=== PATIENT | female | born 1995 | race Caucasian/White ===

== ENCOUNTER 2020-02-09 18:24 | Emergency (ER) | payer OTHER ==
[~2020-02-09] VITALS: Ht 162.6 cm; Wt 67.1 kg
[2020-02-09 18:33] VITALS: BP 104/56
[2020-02-09 19:59] LABS: APPEARANCE,URINE CLEAR (CLEAR); BILIRUBIN,URINE NEGATIVE (NEGATIVE); BLOOD, URINE NEGATIVE (NEGATIVE); COLOR,URINE YELLOW (YELLOW); LEUKOCYTE ESTERASE ,URINE TRACE (NEGATIVE); NITRITE, URINE NEGATIVE (NEGATIVE); UGLUCOSE NEGATIVE (NEGATIVE)
[2020-02-09 21:56] VITALS: BP 101/62
== END 2020-02-09 21:56 | disposition home or self-care (01) ==
LOC: MED 18:24
DX: O23.42 Unspecified infection of urinary tract in pregnancy, second trimester (principal); Z3A.19 19 weeks gestation of pregnancy; Z90.49 Acquired absence of other specified parts of digestive tract
CPT/HCPCS: 76805; 81001; 81025; 87086; 99284; Q0092

== ENCOUNTER 2020-06-05 10:00 | Emergency (ER) | payer MEDICAID, OTHER ==
[~2020-06-05] VITALS: Ht 160 cm; Wt 66.7 kg
[2020-06-05 10:04] VITALS: BP 119/59
--- NOTE | 2020-06-05 10:09 | NUR ---
Pt taken to ER bed 11.
--- NOTE | 2020-06-05 10:23 | NUR ---
RN at pt bedside for evaluation.
[2020-06-05 10:31] LABS: BASOPHILS % (AUTO) 0.5 % (0.0-2.0); EOSINOPHILS % (AUTO) 0.7 % (0.0-4.0); HEMATOCRIT 39.4 % (36-48); HEMOGLOBIN 12.8 g/dL (12.0-16.0); LYMPHOCYTES # (AUTO) 1.9 K/uL (2.5-16.5); LYMPHOCYTES % (AUTO) 25.8 % (20.5-51.1); MEAN CORPUSCULAR HEMOGLOBIN 27 pg (27-31); MEAN CORPUSCULAR HGB CONC 33 g/dL (33-37); MEAN CORPUSCULAR VOLUME 84.1 fL (80-94); MONOCYTES # (AUTO) 0.5 K/uL (0.8-1.0); MONOCYTES % (AUTO) 6.9 % (1.7-9.3); NEUTROPHILS # (AUTO) 4.9 K/uL (1.8-7.7); NEUTROPHILS % (AUTO) 66.1 % (42.2-75.2); PLATELET COUNT (AUTO) 195 K/uL (140-450); RED BLOOD CELL COUNT(AUTO) 4.68 MIL/uL (4.20-5.40); RED CELL DISTRIBUTION WIDTH 15.1 % (11.6-13.7); WHITE BLOOD COUNT (AUTO) 7.5 K/uL (4.8-10.8)
--- NOTE | 2020-06-05 10:32 | NUR ---
US tech at pt bedside.
--- NOTE | 2020-06-05 10:42 | NUR ---
Received care of 24 year-old female pt c/o vaginal bleeding since yesterday, denies pain. Pt states she gave last 04/29/20. No med hx, NKA.
[2020-06-05 10:47] LABS: ALBUMIN 3.9 g/dL (3.4-5.0); CREATININE 0.6 mg/dL (0.6-1.3); TOTAL BILIRUBIN 0.2 mg/dL (0.0-1.0)
[2020-06-05 10:53] LABS: PROTHROMBIN TIME 10.2 secs (10.8-13.4)
[2020-06-05 11:12] LABS: ANION GAP 16.4 (8-16); CARBON DIOXIDE 21.6 mmol/L (21-32)
[2020-06-05 11:48] VITALS: BP 117/61
--- NOTE | 2020-06-05 11:50 | NUR ---
cleared for d/c by DR. Daniels; d/c with instructions on vaginal bleeding, possible menstrual period; pt fully understands all materials given re c/c; has no further questions; aox4; VSS; ambulatory with steady gait; no signs of acute distress.
== END 2020-06-05 11:50 | disposition home or self-care (01) ==
LOC: MED 10:00
DX: N93.9 Abnormal uterine and vaginal bleeding, unspecified (principal); Z90.49 Acquired absence of other specified parts of digestive tract
CPT/HCPCS: 36415; 76856; 80053; 85025; 85610; 85730; 99284

== ENCOUNTER 2021-01-10 11:43 | Emergency (ER) | payer OTHER ==
[~2021-01-10] VITALS: Ht 162.6 cm; Wt 61.7 kg
[2021-01-10 12:19] VITALS: BP 127/78
[2021-01-10 13:57] LABS: BASOPHILS % (AUTO) 0.3 % (0.0-2.0); EOSINOPHILS % (AUTO) 0.6 % (0.0-4.0); HEMATOCRIT 39.1 % (36-48); HEMOGLOBIN 12.4 g/dL (12.0-16.0); LYMPHOCYTES # (AUTO) 1.7 K/uL (2.5-16.5); LYMPHOCYTES % (AUTO) 28.2 % (20.5-51.1); MEAN CORPUSCULAR HEMOGLOBIN 26 pg (27-31); MEAN CORPUSCULAR HGB CONC 32 g/dL (33-37); MONOCYTES # (AUTO) 0.5 K/uL (0.8-1.0); MONOCYTES % (AUTO) 7.7 % (1.7-9.3); NEUTROPHILS # (AUTO) 3.9 K/uL (1.8-7.7); NEUTROPHILS % (AUTO) 63.2 % (42.2-75.2); PLATELET COUNT (AUTO) 208 K/uL (140-450); WHITE BLOOD COUNT (AUTO) 6.1 K/uL (4.8-10.8)
[2021-01-10 14:20] LABS: ALBUMIN 3.8 g/dL (3.4-5.0); ANION GAP 11.2 (8-16); CARBON DIOXIDE 27.2 mmol/L (21-32); CREATININE 0.6 mg/dL (0.6-1.3); POTASSIUM 4.4 mmol/L (3.5-5.1); TOTAL BILIRUBIN 0.2 mg/dL (0.0-1.0)
[2021-01-10] MEDS ORDERED: ACET-10509 PO (14:57)
[2021-01-10] MEDS ORDERED: NITR100C7 PO (15:14)
[2021-01-10 16:20] VITALS: BP 127/78
--- NOTE | 2021-01-10 16:26 | NUR ---
Patient discharged with v/s stable. Written and verbal after care instructions given and explained. Patient alert, oriented and verbalized understanding of instructions. Ambulatory with steady gait. All questions addressed prior to discharge. ID band removed. Patient advised to follow up with PMD. Rx of TYLENOL EXTRA STRENGTH, MACROBID given. Patient educated on indication of medication including possible reaction and side effects. Opportunity to ask questions provided and answered.
[2021-01-10 16:50] LABS: APPEARANCE,URINE CLEAR (CLEAR); BILIRUBIN,URINE NEGATIVE (NEGATIVE); BLOOD, URINE NEGATIVE (NEGATIVE); COLOR,URINE YELLOW (YELLOW); LEUKOCYTE ESTERASE ,URINE NEGATIVE (NEGATIVE); NITRITE, URINE NEGATIVE (NEGATIVE); UGLUCOSE NEGATIVE (NEGATIVE)
== END 2021-01-10 16:26 | disposition home or self-care (01) ==
LOC: MED 11:43
DX: O03.9 Complete or unspecified spontaneous abortion without complication (principal); O23.40 Unspecified infection of urinary tract in pregnancy, unspecified trimester; Z79.899 Other long term (current) drug therapy
CPT/HCPCS: 36415; 80053; 81003; 81025; 84702; 85025; 86900; 86901; 99283

== ENCOUNTER 2021-02-15 11:46 | Emergency (ER) | payer OTHER, SELFPAY ==
[~2021-02-15] VITALS: Ht 162.6 cm; Wt 59.9 kg
[~2021-02-15 11:46] MED LIST: ACET-10509 PO; NITR100C7 PO
[2021-02-15 12:04] VITALS: BP 111/72
[2021-02-15] MEDS ORDERED: IBUP-2213 PO (12:57)
[2021-02-15] MEDS ORDERED: ONDA4TAB PO (12:57)
[2021-02-15 14:15] VITALS: BP 111/70
== END 2021-02-15 14:12 | disposition home or self-care (01) ==
LOC: MED 11:46
DX: B34.9 Viral infection, unspecified (principal); Z20.822 Contact with and (suspected) exposure to COVID-19; Z79.899 Other long term (current) drug therapy; Z79.1 Long term (current) use of non-steroidal anti-inflammatories (NSAID)
CPT/HCPCS: 99283; U0003

== ENCOUNTER 2021-03-06 13:30 | Emergency (ER) | payer OTHER, SELFPAY ==
[~2021-03-06] VITALS: Ht 162.6 cm; Wt 59.4 kg
[~2021-03-06 13:30] MED LIST changes: +IBUP-2213 PO; -NITR100C7 PO; +ONDA4TAB PO
[2021-03-06 13:43] VITALS: BP 117/57
--- NOTE | 2021-03-06 13:58 | NUR ---
PATIENT AMBULATED TO BED 7.
--- NOTE | 2021-03-06 14:07 | NUR ---
DR. LOPEZ BEDSIDE EVALUATING PT
--- NOTE | 2021-03-06 14:07 | NUR ---
25 Y FEMALE WITH C/O GENERALIZED ABDOMINAL PAIN X TODAY. DENIES DYSURIA. LAST BM NORMAL YESTERDAY. PT STATED SHE HAD A POSITIVE TEST X3DAYS AGO, BUT IS UNSURE IF SHE IS . ABDOMINAL PAIN IS FELT THROUGHOUT AND IS TENDER TO TOUCH. NO N/V/D AT THIS TIME. BOWEL SOUNDS ACTIVE AND PT DENIES ANY VAGINAL BLEEDING PMH: DENIES NKA
--- NOTE | 2021-03-06 14:17 | NUR ---
LAB BEDSIDE WITH PATIENT
--- NOTE | 2021-03-06 14:21 | NUR ---
ULTRASOUND BEDSIDE WITH PATIENT
[2021-03-06] MEDS ORDERED: ACETAMINOPHEN 325 MG TAB PO ONE (14:45)
--- NOTE | 2021-03-06 14:55 | NUR ---
Patient appears to be resting in bed. Vital Signs within normal limits. Respirations even and unlabored.
[2021-03-06 15:06] LABS: BILIRUBIN,URINE NEGATIVE (NEGATIVE); BLOOD, URINE NEGATIVE (NEGATIVE); COLOR,URINE YELLOW (YELLOW); LEUKOCYTE ESTERASE ,URINE TRACE (NEGATIVE); NITRITE, URINE NEGATIVE (NEGATIVE); UGLUCOSE NEGATIVE (NEGATIVE)
[2021-03-06 15:08] LABS: APPEARANCE,URINE HAZY (CLEAR)
[2021-03-06 15:13] LABS: BASOPHILS % (AUTO) 0.2 % (0.0-2.0); EOSINOPHILS % (AUTO) 0.3 % (0.0-4.0); HEMATOCRIT 38.6 % (36-48); HEMOGLOBIN 12.4 g/dL (12.0-16.0); LYMPHOCYTES % (AUTO) 26.2 % (20.5-51.1); MEAN CORPUSCULAR HEMOGLOBIN 25 pg (27-31); MEAN CORPUSCULAR HGB CONC 32 g/dL (33-37); MEAN CORPUSCULAR VOLUME 77.8 fL (80-94); MONOCYTES # (AUTO) 0.5 K/uL (0.8-1.0); MONOCYTES % (AUTO) 6.5 % (1.7-9.3); NEUTROPHILS % (AUTO) 66.8 % (42.2-75.2); PLATELET COUNT (AUTO) 243 K/uL (140-450); RED BLOOD CELL COUNT(AUTO) 4.96 MIL/uL (4.20-5.40); RED CELL DISTRIBUTION WIDTH 13.6 % (11.6-13.7); WHITE BLOOD COUNT (AUTO) 7.6 K/uL (4.8-10.8)
[2021-03-06 15:52] VITALS: BP 111/52
--- NOTE | 2021-03-06 15:52 | NUR ---
Patient discharged with v/s stable. Written and verbal after care instructions given and explained. Patient verbalized understanding. Ambulatory with steady gait. All questions addressed prior to discharge. Advised to follow up with PMD.
[2021-03-06 16:39] LABS: RBC,URINE NONE SEEN /HPF (0-5); WBC,URINE 0-5 /HPF (0-5)
== END 2021-03-06 15:52 | disposition home or self-care (01) ==
LOC: MED 13:30
DX: O03.9 Complete or unspecified spontaneous abortion without complication (principal); N94.6 Dysmenorrhea, unspecified; Z90.49 Acquired absence of other specified parts of digestive tract; Z79.899 Other long term (current) drug therapy
CPT/HCPCS: 36415; 76801; 81001; 81025; 84702; 85025; 86900; 86901; 99284; Q0092

== ENCOUNTER 2021-03-15 20:43 | Emergency (ER) | payer OTHER, SELFPAY ==
[~2021-03-15] VITALS: Ht 162.6 cm; Wt 59.9 kg
[2021-03-15 21:14] VITALS: BP 116/85
--- NOTE | 2021-03-15 21:21 | NUR ---
patient ambulated to the bathroom for urine collection.
--- NOTE | 2021-03-15 21:23 | NUR ---
patient ambulated to [facility]
--- NOTE | 2021-03-15 21:42 | NUR ---
Kary lópez in [facility] - 03/15/21 at 2142 by KORINA PT TAKEN TO [facility]
--- NOTE | 2021-03-15 21:42 | NUR ---
PT TAKEN TO BED 11
--- NOTE | 2021-03-15 21:55 | NUR ---
25 YO F BIB SELF WITH C/C OF ANXIETY, DIZZINESS, NAUSEA AND WEAKNESS X1DAY. PT STATES SHE HAS BEEN DIAGNOSED WITH ANXIETY, DOES NOT WANT TO TAKE MEDICATION FOR ANXIETY. DENIES ABD PAIN. DENIES VOMITING, DIARRHEA, FEVER, AND CHILLS, AND HAS NOT BEEN AROUND ANYONE WHO HAS BEEN SICK. HX:ANXIETY DENIES ALLERG AND RX LMP:FEB 02 2021
--- NOTE | 2021-03-15 22:16 | NUR ---
Dr. Madison examining patient.
[2021-03-15] MEDS ORDERED: ATA25 PO (22:35)
[2021-03-15] MEDS ORDERED: CIPR500T4 PO (22:35)
[2021-03-15 22:51] VITALS: BP 116/85
--- NOTE | 2021-03-15 22:51 | NUR ---
Patient discharged with v/s stable. Written and verbal after care instructions given and explained. Patient alert, oriented and verbalized understanding of instructions. Ambulatory with steady gait. All questions addressed prior to discharge. ID band removed. Patient advised to follow up with PMD. Rx of ATARAX AND CIPROFLOXACIN given. Patient educated on indication of medication including possible reaction and side effects. Opportunity to ask questions provided and answered.
== END 2021-03-15 22:51 | disposition home or self-care (01) ==
LOC: MED 20:43
DX: N39.0 Urinary tract infection, site not specified (principal); F41.9 Anxiety disorder, unspecified; R42 Dizziness and giddiness; R51.9 Headache, unspecified; R11.0 Nausea; Z90.49 Acquired absence of other specified parts of digestive tract; Z79.899 Other long term (current) drug therapy
CPT/HCPCS: 81002; 81025; 99283

== ENCOUNTER 2021-06-15 17:07 | Emergency (ER) | payer OTHER ==
[~2021-06-15] VITALS: Ht 162.6 cm; Wt 68.5 kg
[~2021-06-15 17:07] MED LIST changes: +ATA25 PO; +CIPR500T4 PO
[2021-06-15 18:25] VITALS: BP 132/77
[2021-06-15] MEDS ORDERED: ACETAMINOPHEN 650 MG/20.3 ML UDC PO ONE (18:55)
--- NOTE | 2021-06-15 19:21 | NUR ---
25 y/o female, c/o abd pain (pressure, cramping), hip pain that radiates to lower back for 3 hours prior to arrival. denies n/v/d, dysuria, hematuria. denies fall, syncope, loc, injury or overexertion. states pain is 8/10 pmh: appendix removal nka med: denies
[2021-06-15] MEDS ORDERED: ACETAMINOPHEN 650 MG/20.3 ML UDC ONE (20:25)
--- NOTE | 2021-06-15 20:29 | NUR ---
patient medicated. no adverse rx from patient.
[2021-06-15 23:10] VITALS: BP 129/70
--- NOTE | 2021-06-15 23:10 | NUR ---
Patient discharged without paperwork. Ambulatory with steady gait. Patient advised to follow up with PMD.
[2021-06-16 00:28] LABS: APPEARANCE,URINE HAZY (CLEAR); BILIRUBIN,URINE NEGATIVE (NEGATIVE); BLOOD, URINE NEGATIVE (NEGATIVE); COLOR,URINE YELLOW (YELLOW); LEUKOCYTE ESTERASE ,URINE NEGATIVE (NEGATIVE); NITRITE, URINE NEGATIVE (NEGATIVE); UGLUCOSE NEGATIVE (NEGATIVE)
[2021-06-16 00:40] LABS: RBC,URINE 0-5 /HPF (0-5); WBC,URINE 0-5 /HPF (0-5)
== END 2021-06-15 23:10 | disposition home or self-care (01) ==
LOC: MED 17:07
DX: M79.10 Myalgia, unspecified site (principal)
CPT/HCPCS: 81001; 81003; 81025; 87086; 99283

== ENCOUNTER 2021-09-22 16:07 | Emergency (ER) | payer OTHER ==
[~2021-09-22] VITALS: Ht 162.6 cm; Wt 68.9 kg
[2021-09-22 16:12] VITALS: BP 112/71
--- NOTE | 2021-09-22 16:20 | NUR ---
pt ambulated to bed 6 with steady gait
--- NOTE | 2021-09-22 16:55 | NUR ---
URINE COLLECTED. URINE PREG AND DIP DONE
--- NOTE | 2021-09-22 19:30 | NUR ---
REPORT GIVEN TO SCOTT CASTRO, TRANSFER OF CARE AT THIS TIME
[2021-09-22 20:02] VITALS: BP 115/71
--- NOTE | 2021-09-22 20:17 | NUR ---
The patient's care was reviewed and supervised by Jennifer Taylor RN.
== END 2021-09-22 20:02 | disposition home or self-care (01) ==
LOC: MED 16:07
DX: N93.9 Abnormal uterine and vaginal bleeding, unspecified (principal); M54.50 Low back pain, unspecified; Z79.899 Other long term (current) drug therapy; Z79.2 Long term (current) use of antibiotics; Z79.1 Long term (current) use of non-steroidal anti-inflammatories (NSAID)
CPT/HCPCS: 36415; 81002; 81025; 84702; 99283

== ENCOUNTER 2021-12-22 18:10 | Emergency (ER) | payer OTHER ==
[~2021-12-22] VITALS: Ht 167.6 cm; Wt 66.2 kg
[2021-12-22 18:16] VITALS: BP 92/60
--- NOTE | 2021-12-22 18:20 | NUR ---
BIB SELF C/O 11/27 LOWER ABD PAIN, LOWER BACK PAIN X TODAY. DENIES DYSURIA. PMH: DENIES
--- NOTE | 2021-12-22 18:34 | NUR ---
PT AMBULATED TO ER BED 11
--- NOTE | 2021-12-22 18:57 | NUR ---
Female Sawmill Hand accompanied female patient for Pelvic Exam. WET [place] COLLECTED AND WALKED TO LAB
--- NOTE | 2021-12-22 19:00 | NUR ---
PA AND FEMALE RN AT BEDSIDE FOR PELVIC EXAM
--- NOTE | 2021-12-22 19:22 | NUR ---
PT IS AWAKE AND ALERT. BED REPOSITIONED FOR COMFORT. ALL NEEDS MET AT THIS TIME.
[2021-12-22] MEDS ORDERED: METR-435 PO (20:05)
[2021-12-22 20:30] VITALS: BP 98/61
--- NOTE | 2021-12-22 20:30 | NUR ---
Patient discharged with v/s stable. Written and verbal after care instructions given and explained. Patient alert, oriented and verbalized understanding of instructions. Ambulatory with steady gait. All questions addressed prior to discharge. ID band removed. Patient advised to follow up with PMD. Rx of METRONIDIAZOLE given. Patient educated on indication of medication including possible reaction and side effects. Opportunity to ask questions provided and answered.
== END 2021-12-22 20:30 | disposition home or self-care (01) ==
LOC: MED 18:10
DX: N76.0 Acute vaginitis (principal); B96.89 Other specified bacterial agents as the cause of diseases classified elsewhere; Z79.899 Other long term (current) drug therapy
CPT/HCPCS: 76856; 81002; 81025; 87210; 99284; Q0092

== ENCOUNTER 2022-01-14 10:45 | Emergency (ER) | payer OTHER ==
[~2022-01-14] VITALS: Ht 162.6 cm; Wt 67.1 kg
[~2022-01-14 10:45] MED LIST changes: +METR-435 PO
[2022-01-14 10:51] VITALS: BP 99/68
--- NOTE | 2022-01-14 10:56 | NUR ---
AMBULATED TO BED 11
--- NOTE | 2022-01-14 11:09 | NUR ---
26 Y/O FEMALE BIB SELF C/O N/V RIGHT SIDED LOW BACK PAIN X2DAYS. DENIES ANY VOMITING TODAY, ONLY NAUSEA. PER PT SHE HAD 3 EPISODES OF VOMITING YESTERDAY, DENIES ABD PAIN DIARRHEA. DENIES BLOOD IN VOMIT. [id number]. LMP 11/28/21, 5 WEEKS , DENIES ANY VAGINAL BLEEDING OR DISCHARGE NKA PMH: DENIES
--- NOTE | 2022-01-14 11:14 | NUR ---
DR CASTILLO AT BEDSIDE FOR EVAL
--- NOTE | 2022-01-14 11:17 | NUR ---
URINE WALKED AND HANDED TO LAB
[2022-01-14] MEDS ORDERED: NACL 0.9% 1,000 ML IV SCH (11:20)
[2022-01-14] MEDS ORDERED: ONDANSETRON 4 MG/2 ML VIAL IVP ONE (11:20)
--- NOTE | 2022-01-14 11:33 | NUR ---
US AT BEDSIDE
--- NOTE | 2022-01-14 11:41 | NUR ---
Kary lópez in [facility] - 01/14/22 at 1142 by [email or web address] PT DENIES ANY SOB AT THIS TIME
--- NOTE | 2022-01-14 11:45 | NUR ---
LAB AT BEDSIDE
[2022-01-14 12:00] LABS: BASOPHILS % (AUTO) 0.2 % (0.0-2.0); EOSINOPHILS % (AUTO) 0.5 % (0.0-4.0); HEMATOCRIT 36.5 % (36-48); HEMOGLOBIN 12.2 g/dL (12.0-16.0); LYMPHOCYTES % (AUTO) 26.2 % (20.5-51.1); MEAN CORPUSCULAR HEMOGLOBIN 27 pg (27-31); MEAN CORPUSCULAR HGB CONC 33 g/dL (33-37); MEAN CORPUSCULAR VOLUME 81.7 fL (80-94); MONOCYTES # (AUTO) 0.7 K/uL (0.8-1.0); MONOCYTES % (AUTO) 9.4 % (1.7-9.3); NEUTROPHILS # (AUTO) 4.9 K/uL (1.8-7.7); NEUTROPHILS % (AUTO) 63.7 % (42.2-75.2); PLATELET COUNT (AUTO) 196 K/uL (140-450); RED BLOOD CELL COUNT(AUTO) 4.47 MIL/uL (4.20-5.40); RED CELL DISTRIBUTION WIDTH 14.5 % (11.6-13.7); WHITE BLOOD COUNT (AUTO) 7.7 K/uL (4.8-10.8)
[2022-01-14 12:08] LABS: ALBUMIN 3.5 g/dL (3.4-5.0); ANION GAP 10.8 (8-16); CARBON DIOXIDE 27.4 mmol/L (21-32); CREATININE 0.7 mg/dL (0.6-1.3); POTASSIUM 4.2 mmol/L (3.5-5.1); TOTAL BILIRUBIN 0.3 mg/dL (0.0-1.0)
[2022-01-14 12:21] LABS: BILIRUBIN,URINE NEGATIVE (NEGATIVE); BLOOD, URINE NEGATIVE (NEGATIVE); COLOR,URINE YELLOW (YELLOW); LEUKOCYTE ESTERASE ,URINE NEGATIVE (NEGATIVE); NITRITE, URINE NEGATIVE (NEGATIVE); PH,URINE 8.5 (5.0-9.0); UGLUCOSE NEGATIVE (NEGATIVE)
[2022-01-14 12:24] LABS: APPEARANCE,URINE HAZY (CLEAR)
[2022-01-14 12:27] LABS: CALCIUM OXALATE CRYSTALS,UR None Seen /HPF (None Seen); COARSE GRANULAR CASTS,URINE None Seen /LPF (None Seen); FINE GRANULAR CASTS,URINE None Seen /LPF (None Seen); HYALINE CASTS, URINE None Seen /LPF (None Seen); OTHER CASTS, URINE None Seen /LPF (None Seen); OTHER CRYSTALS,URINE None Seen /HPF (None Seen); RBC,URINE NONE SEEN /HPF (0-5); RED BLOOD CELL CASTS,URINE None Seen /LPF (None Seen); TRICHOMONAS,URINE None Seen /HPF (None Seen); TRIPLE PHOSPHATE CRYSTAL,UR None Seen /HPF (None Seen); URIC ACID CRYSTALS,URINE None Seen /HPF (None Seen); URINE AMORPHOUS URATE None Seen /HPF (None Seen); WAXY CASTS,URINE None Seen /LPF (None Seen); WBC,URINE 0-5 /HPF (0-5); YEAST,URINE None Seen /HPF (None Seen)
[2022-01-14] MEDS ORDERED: ONDA8TAB87 PO (12:47)
[2022-01-14 12:55] VITALS: BP 103/57
== END 2022-01-14 14:19 | disposition home or self-care (01) ==
LOC: MED 10:45
DX: O21.9 Vomiting of pregnancy, unspecified (principal); Z3A.01 Less than 8 weeks gestation of pregnancy; Z90.49 Acquired absence of other specified parts of digestive tract
CPT/HCPCS: 36415; 76817; 80053; 81001; 81025; 83690; 84702; 85025; 96361; 96374; 99284; J2405; Q0092; J7030